=== PATIENT | male | born 1950 | race Caucasian/White ===

== ENCOUNTER 2017-12-05 05:55 | Inpatient (IN) ==
[~2017-12-05 05:55] MED LIST: LIDOCAINE W/ SODIUM BICARB 0.5 ML SYR ONE; Lactated Ringers 1,000 ML PRIMARY IV ONE
[2017-12-05] MEDS ORDERED: ceFAZolin Inj 3 GM in Sodium Chloride 0.9% 100 ML IV ONE (06:00)
[2017-12-05] MEDS ORDERED: Lactated Ringers 1,000 ML PRIMARY IV SCH (06:00)
[2017-12-05] MEDS ORDERED: Nasal Sanitizer POPSWAB ampule 3 AMP (Nozin) PREOP DOSE ENOS SCH (06:00)
[2017-12-05] MEDS ORDERED: LIDOCAINE W/ SODIUM BICARB 0.5 ML SYR SUBD ONE (06:00)
[2017-12-05] MEDS ORDERED: BACITRACIN 50,000 UNIT VIAL IRRIG ONE (07:06)
[2017-12-05] MEDS ORDERED: Sodium Chloride 0.9% vial 40 ML ONE (07:06)
[2017-12-05] MEDS ORDERED: KETAMINE 100 MG/1 ML - 5 ML ONE (07:09)
[2017-12-05] MEDS ORDERED: fentaNYL Inj 250 MCG/5 ML VIAL ONE (07:09)
[2017-12-05] MEDS ORDERED: MIDAZOLAM 5 MG/1 ML ONE (07:09)
[2017-12-05] MEDS ORDERED: PROPOFOL 10 MG/1 ML (200 MG/20 ML) VIAL IV ONE (07:09)
[2017-12-05] MEDS ORDERED: LIDOCAINE MPF 2% - 5 ML (20 MG/1 ML) ONE ×2 (07:09→10:23)
[2017-12-05 07:12] LABS: BILIRUBIN,URINE NEGATIVE (NEG); CLARITY,URINE CLEAR (CLEAR); COLOR,URINE YELLOW (Y); GLUCOSE, URINE (UA) NEGATIVE (NEG); OCCULT BLOOD,URINE NEGATIVE (NEG); PH,URINE 5.5 (5.0-8.5); PROTEIN,URINE NEGATIVE (NEG); UROBILINOGEN,URINE 0.2 EU/dL (0.2)
[2017-12-05 07:13] LABS: URINE SAMPLE TYPE CLEAN CATCH URINE
[2017-12-05] MEDS ORDERED: LIDOCAINE HCL 2 % 10 ML JELLY URO-JECT TOPICAL ONE (07:15)
[2017-12-05] MEDS ORDERED: ROCURONIUM 10 MG/1 ML - 5 ML VIAL IVP ONE (07:17)
[2017-12-05] MEDS ORDERED: TRANEXAMIC ACID 1,000 MG / 10 ML VIAL ONE ×3 (07:27→08:37)
[2017-12-05] MEDS ORDERED: BUPIVACAINE SPLASH ONE ×2 (07:30)
[2017-12-05] MEDS ORDERED: KETOROLAC SPLASH ONE ×2 (07:30)
[2017-12-05] MEDS ORDERED: Lactated Ringers 1,000 ML PRIMARY IV ONE ×4 (07:54→10:32)
[2017-12-05] MEDS ORDERED: BUPivacaine Liposome/PF (Exparel) Inj 20ml vial INFIL ONE (08:17)
[2017-12-05] MEDS ORDERED: Sodium Chloride 0.9% vial 10 ML ONE ×2 (08:17→08:25)
[2017-12-05] MEDS ORDERED: Acetaminophen 1000mg Inj 1,000 MG/100 ML VIAL IV ONE (08:38)
[2017-12-05] MEDS ORDERED: SUFENTANIL 50 MCG/1 ML ONE (08:43)
[2017-12-05] MEDS ORDERED: BUPivacaine Inj 0.25% PF - 10ml vial ONE (10:57)
[2017-12-05] MEDS ORDERED: BETAMET ACET/BETAMET NA PH 6 MG/1 ML - 5 ML ONE (10:57)
[2017-12-05] MEDS ORDERED: HYDROmorphone 2 MG/1 ML IVP PRN (11:17)
[2017-12-05] MEDS ORDERED: ONDANSETRON 4 MG/2 ML VIAL IVP PRN ×2 (11:17→12:39)
[2017-12-05] MEDS ORDERED: LIDOCAINE W/ SODIUM BICARB 0.5 ML SYR SUBD PRN (11:17)
--- NOTE | 2017-12-05 11:17 | CRNA.PROGR ---
Anesthesia Time - Procedure/Recovery Time Start Date: 12/05/17 End Date: 12/05/17 Anesthesia : Time In: 07:36 Anesthesia : Time Out: 11:12 Anesthesia : Total Time: 216 - Total Anesthesia Time Total Anesthesia Time (minutes): 216 - Other Weight: 121.109 kg Height: 6 ft 5 in Body Mass Index (BMI): 31.6 Physical Status: P2 Anesthesia Type: General Anesthesia : ET
--- NOTE | 2017-12-05 11:17 | CRNA.PROGR ---
Anesthesia Recovery Phase I - Post Anesthesia Evaluation Patient's Condition on Arrival in Phase I: Stable Pain Level: 0 (somnulant)
[2017-12-05] MEDS ORDERED: HYDROcodone-APAP 7.5 MG-325 MG TABLET PO PRN (11:19)
--- NOTE | 2017-12-05 11:35 | ORTHO.OP ---
- - -: See Dictated Operative Report
[2017-12-05] MEDS ORDERED: HYDROmorphone 2 MG/1 ML ONE (11:44)
[2017-12-05 12:04] LABS: Hematocrit [HCT] 39.7 % (42.0-52.0); Hemoglobin [HGB] 13.3 g/dL (14.0-18.0)
[2017-12-05] MEDS ORDERED: MAG HYDROX/AL HYDROX/SIMETH 30 ML SUSP PO PRN (12:39)
[2017-12-05] MEDS ORDERED: diphenhydrAMINE 25 MG CAPSULE PO PRN (12:39)
[2017-12-05] MEDS ORDERED: CALCIUM CARBONATE 500 MG (TUMS) CHEWABLE TABLET PO PRN (12:39)
[2017-12-05] MEDS ORDERED: INSULIN GLARGINE HUM REC ANLOG 50 UNIT SUBCUT SCH (12:39)
[2017-12-05] MEDS: Lactated Ringers 1,000 ML PRIMARY IV SCH ×2 (13:41→23:47)
[2017-12-05] MEDS ORDERED: Insulin Sliding Scale Protocol SUBCUT PRN (15:27)
[2017-12-05] MEDS ORDERED: Glucagon Inj Vial 1 MG/ML VIAL IM PRN (15:27)
[2017-12-05] MEDS ORDERED: DEXTROSE 31 GM GEL PO PRN (15:27)
[2017-12-05] MEDS ORDERED: DEXTROSE 50%-WATER SYRINGE 50 ML SYRINGE IVP PRN (15:27)
--- NOTE | 2017-12-05 15:47 | PDOC ---
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 Almendarez today. See Dr. Almendarez surgical note for details of the procedure. I was asked to see the patient to adjust diabetes and advise on that and issues related to his hypertension. Postoperatively, the patient does not complain of any chest pain, shortness breath, and he states that his left hip pain is controlled currently. He did have some nausea and vomiting, but those have resolved and is been able to hold some fluids down now. The patient states that he's had arthritis for some time. He states that his arthritis is bad enough and his hip and knee on the left side that he's actually going to be doing a left knee replacement down the road as well as right hip and a right knee replacement. He may even be looking at back surgery although that remains to be seen in terms of whether or not his back pain improves after his health has been done. In terms of his diabetes, a total me that his blood sugars been running in the 120s to 130s range. He states that he recently had an eye exam and his eyes were cleared. He does not have any nephropathy or neuropathy symptoms. He normally gets his care through the [facility] in [place]. He does admit to smoking tobacco, and he is not sure if he is interested in a nicotine replacement product. He is willing to try if he has any nicotine cravings. He has not had any recent history of heart problems, but he did have a remote CABG over 25 years ago. He has had subsequent stents but denies any chest pain and has not had any congestive heart failure symptoms. Past Medical History Medical History: 1. Coronary artery disease status post CABG and subsequent stents for graft vessel coronary artery disease. 2. Hypertension. 3. Diabetes mellitus, insulin-dependent. 4. Tobacco abuse. 5. Severe arthritis affecting the hips, knees, shoulders, and back. 6. Hypercholesterolemia Surgical History: 1. Prior knee surgeries. 2. History back surgery. 3. Cataracts Pertinent Family History: Significant for heart disease and diabetes in the family. Past Social History: Smokes about three quarters of a pack per day, states that he's been cutting back. Does not drink alcohol. . Has healthy children. Lives in [place], and gets his care through the [place]. Tobacco Use: Current Every Day Smoker In the Past 12 Months, Have Used or Abuse Any of the Following Substance: None Alcohol Use: None Medication / Allergies Home Medications: Home Medications 3 Medication Instructions Recorded Confirmed Type acetaminophen 325 mg tablet 325 mg PO QDAY PRN tab 10/09/17 12/05/17 History albuterol 90 mcg/actuation aerosol mcg INH BID 10/09/17 11/09/17 History inhaler insulin aspart U-100 100 unit/mL 50 unit SUBCUT QAC ml 10/09/17 12/05/17 History subcutaneous solution insulin glargine (U-100) 100 50 unit SUBCUT QHS ml 10/09/17 12/05/17 History unit/mL subcutaneous solution losartan 25 mg tablet 25 mg PO QDAY 10/09/17 12/05/17 History melatonin 3 mg tablet 9 mg PO QHS tab 10/09/17 12/05/17 History Rivaroxaban [Xarelto] 10 mg PO DAILY #35 tab 12/05/17 Rx Allergies/Adverse Reactions: Allergies 3 Allergy/AdvReac Type Severity Reaction Status Date / Time No Known Allergies Allergy Verified 12/05/17 12:41 Review of Systems - Review of Systems All Systems: Reviewed & No Additional Complaints Except as Stated - Respiratory Respiratory: REPORTS: Negative System Review - Cardiovascular Cardiovascular: REPORTS: Negative System Review - Gastrointestinal Gastrointestinal / Abdominal: REPORTS: Nausea, Vomiting, Other (Nausea and vomiting were noted postoperatively, but have not heard improved. Patient is holding fluids down now.) - Musculoskeletal Musculoskeletal: REPORTS: See HPI Exam - Vitals Vital Signs: Vital Signs Temperature 97.7 F Temperature Source Oral Pulse Rate [Pulse Oximeter] 65 Pulse Rate 75 Respiratory Rate 20 Blood Pressure [Left Arm] 127/64 Blood Pressure 135/68 Pulse Ox 98 Oxygen Flow Rate 2 Oxygen Delivery Method Nasal Cannula Height 6 ft 5 in Weight 267 lb - General General Appearance: No Acute Distress, Cooperative - Head Head Exam: Normal Inspection, Normocephalic, Atraumatic - Eye Eye Exam: POSITIVE: No Scleral Icterus - ENT ENT Exam: POSITIVE: Mucous Membranes Moist - Respiratory Respiratory Exam: POSITIVE: Clear to Auscultation - Bilaterally, Breathing Non Labored - Cardiovascular Cardiovascular Exam: POSITIVE: RRR, No Murmur, No Clicks, No Gallops, No Rubs, No JVD - GI/Abdominal GI/Abdominal Exam: POSITIVE: Normal Bowel Sounds, Non Tender, Non Distended, Soft - Rectal Rectal Exam: POSITIVE: Deferred - External Exam: POSITIVE: Deferred Exam: POSITIVE: Deferred - Extremities Extremities Exam: POSITIVE: No Clubbing Present, No Edema Present, No Cyanosis Present Additional Extremities Exam Details: Left hip is dressed, dressing is clean, dry, intact and ice pack is in place. - Neurological Neurological Exam: POSITIVE: Alert, Oriented x 3, No Facial Droop, Speech Intact / Clear Results - Labs CBC and BMP: 12/05/17 12:00 Additional Lab Results: 11/09/17 11/09/17 08:58 08:58 Sodium 141 Potassium 4.6 Chloride 108 Carbon Dioxide 22 L Anion Gap 11 BUN 15 Creatinine 0.9 Estimated GFR > 60 BUN/Creatinine Ratio 16.66 Glucose 169 H Mean Blood Glucose 161.419 Hemoglobin A1c 7.43 H Calculated Osmolality 296.0 H Calcium 9.4 Total Bilirubin 0.5 AST 57 ALT 49 Alkaline Phosphatase 101 Total Protein 7.5 Albumin 4.2 Globulin 3.3 Albumin/Globulin Ratio 1.20 L Preoperative urinalysis was reviewed on my review of the medical record and it was negative. - EKG Data -: EKG Interpreted by Me (From 11/09/2017) Rate: Normal EKG Shows Normal: Sinus Rhythm - EKG Data EKG Interpretation: Other (Right bundle branch block pattern) Assessment and Plan - Patient Problems (1) Coronary artery disease Current Visit: Yes Status: Acute Code(s): I25.10 - Atherosclerotic heart disease of [place] coronary artery without angina pectoris Qualifiers: Coronary Disease-Associated Artery/Lesion type: bypass graft [place] vs. transplanted heart: [place] heart Associated angina: without angina Qualified Code(s): I25.810 - Atherosclerosis of coronary artery bypass graft(s) without angina pectoris (2) Diabetes mellitus, type II, insulin dependent Current Visit: Yes Status: Acute Code(s): E11.9 - Type 2 diabetes mellitus without complications; Z79.4 - ocean transportation intermediary (current) use of insulin (3) Hypertension Current Visit: Yes Status: Acute Code(s): I10 - Essential (primary) hypertension Qualifiers: Hypertension type: essential hypertension Qualified Code(s): I10 - Essential (primary) hypertension (4) Hypercholesterolemia Current Visit: Yes Status: Acute Code(s): E78.00 - Pure hypercholesterolemia , unspecified (5) Tobacco abuse Current Visit: Yes Status: Acute Code(s): Z72.0 - Tobacco use (6) Tobacco abuse counseling Current Visit: Yes Status: Acute Code(s): Z71.6 - Tobacco abuse counseling (7) Right bundle branch block Current Visit: Yes Status: Chronic Code(s): I45.10 - Unspecified right bundle-branch block (8) Osteoarthritis Current Visit: Yes Status: Acute Code(s): M19.90 - Unspecified osteoarthritis, unspecified site Qualifiers: Osteoarthritis location: multiple joints Osteoarthritis type: primary Qualified Code(s): M15.0 - Primary generalized (osteo)arthritis (9) Status post left hip replacement Current Visit: Yes Status: Acute Code(s): Z96.642 - Presence of left artificial hip joint - Assessment / Plan Additional Assessment/Plan Details: In terms of the diabetes, as we do not have aspart on formula, we'll switch to lispro for the hospital stay, and I'll write for Lantus, corrective dose insulin , and 10 units of lispro with meals. Check blood sugars every before meals and daily at bedtime and try to keep blood sugars at 180 or less. Also hold off on angiotensin receptor marek due to perioperative association with renal failure and hypotension. We can resume that in a couple of days. DVT prophylaxis. PT and OT. Would like to thank Dr. Almendarez for this consult. Other twice a day the hospitalist services pleasure to continue to assess and address medical issues during the patient's hospital stay.
[2017-12-05] MEDS ORDERED: Insulin Lispro Flexpen 300 UNIT/3 ML INSULN.PEN SUBCUT SCH ×2 (16:00→16:30)
[2017-12-05] MEDS ORDERED: ceFAZolin 1 GM VIAL ONE (17:40)
[2017-12-05] MEDS: ceFAZolin Inj 3 GM in Sodium Chloride 0.9% 100 ML IV SCH ×2 (17:49→23:41)
--- NOTE | 2017-12-05 17:50 | DI ---
AP AND LATERAL LEFT HIP, 12/05/2017 11:35 AM: Clinical History: Status post left total hip replacement. Osteoarthritis. Previous Exam: None at this facility. AP and lateral views of the replaced hip are submitted. The patient is status post left total hip rep lacement. The prosthetic joint articulates normally. Reading: Left total hip replacement. The prosthetic joint articulates normally.
[2017-12-05] MEDS: Insulin Lispro Flexpen 300 UNIT/3 ML INSULN.PEN SUBCUT SCH (20:27)
[2017-12-05] MEDS: MELATONIN 5 MG TABLET PO SCH (20:39)
[2017-12-05] MEDS: Insulin Glargine SoloStar Inj 100 UNIT/ML INSULN.PEN SUBCUT SCH (20:39)
[2017-12-05] MEDS: DOCUSATE 100 MG CAPSULE PO SCH (20:39)
[2017-12-05] MEDS: HYDROcodone-APAP 7.5 MG-325 MG TABLET PO PRN (20:40)
[2017-12-05] MEDS ORDERED: Insulin Glargine SoloStar Inj 100 UNIT/ML INSULN.PEN SUBCUT SCH (21:00)
[2017-12-06] MEDS: HYDROcodone-APAP 7.5 MG-325 MG TABLET PO PRN ×3 (01:59→20:25)
[2017-12-06 04:30] LABS: Hematocrit [HCT] 36.9 % (42.0-52.0); Hemoglobin [HGB] 12.7 g/dL (14.0-18.0); MEAN CORPUSCULAR HEMOGLOBIN 33.3 PG (27-31); MEAN CORPUSCULAR HGB CONC 34.4 g/dL (33-37); MEAN CORPUSCULAR VOLUME 96.9 FL (80-90); MEAN PLATELET VOLUME 9.1 FL (7.4-12.2); RED BLOOD COUNT 3.81 10^6/uL (4.70-6.10)
[2017-12-06 04:45] LABS: BLOOD UREA NITROGEN 19 mg/dL (7-22); BUN/CREATININE RATIO 23.75 (6-20)
--- NOTE | 2017-12-06 06:53 | ORTHO.PROG ---
Last Taken Vital Signs: Vital Signs - Last Taken Temperature 97.3 F 12/06/17 04:26 Pulse Rate 78 12/06/17 04:26 Respiratory Rate 18 12/06/17 04:26 Blood Pressure 113/56 12/06/17 04:26 Pulse Ox 92 12/06/17 04:26 Subjective: sleeping Objective: vitals per list . pt up walking last night. no co pain. Assessment: Stable POD # 1 L LOI. Of note wbc=16 CC when stable Plan: as above
[2017-12-06] MEDS: Insulin Lispro Flexpen 300 UNIT/3 ML INSULN.PEN SUBCUT SCH ×4 (06:55→20:26)
[2017-12-06] MEDS: DOCUSATE 100 MG CAPSULE PO SCH ×2 (08:38→20:25)
[2017-12-06] MEDS: ENOXAPARIN SODIUM 30 MG/0.3 ML SYRINGE SUBCUT SCH ×2 (08:38→20:24)
[2017-12-06] MEDS ORDERED: LOSARTAN 25 MG TABLET PO SCH (09:00)
--- NOTE | 2017-12-06 11:34 | PTI REPORT ---
Thank you for the referral of Christopher Mahajan. He was seen on 12/05/17 for an inpatient evaluation status post left total hip arthroplasty. SUBJECTIVE: The patient is a 67-year-old male. The patient reports he has been having a lot of pain in his hip since being brought up from outpatient surgery, but states that the pain is less than what he was having prior to surgery. He states most of his discomfort is because he is 6'5" and the bed is too small for him. PAST MEDICAL HISTORY: Past medical history can be found in the patient's medical record. OBJECTIVE FINDINGS: Pain: The patient reported a pain level initially of 4/10 on the verbal analog scale (0=no pain,10=worst pain) which increased to a 7/10 with activities. Bed mobility: The patient was able to perform bed mobility with mod assist x1 for the left lower extremity as well as verbal cues for maintaining total hip precautions. When initially asked, the patient was unable to recall any of the total hip precautions, but was able to recite them at the end of treatment following review. He required max assist x1 for the left lower extremity when transferring from edge of bed to supine. Transfers: The patient was able to perform sit to stand transfers with verbal cues for proper hand placement as well as unsupported sitting edge of bed for greater than 5 minutes as well as standing weight-shifting activities for up to 3 minutes. Strength/Range of motion: Strength and range of motion were not formally tested due to surgical restrictions. Incision/Edema: The patient's incision was unable to be inspected due to his post op bandage being in place. He does have Grade III edema in that left hip. Ambulation: Ambulation was not attempted on this visit due to his IV cord and oxygen. He is currently on 1 liter of oxygen via nasal cannula. ASSESSMENT: Problem List: Pain in the left hip Decreased passive and active range of motion in the left hip Decreased strength in the left hip Short-Term Goals: To be met by discharge from inpatient: Patient will be able to transfer from bed to stand independently. Patient will be able to ambulate approximately 100 feet with walker, weight- bearing as tolerated. Patient will be able to ascend and descend five stairs with walker, weight- bearing as tolerated. Long-Term Goals: To be met following discharge from inpatient: Patient will be seen by outpatient physical therapy. TREATMENT PLAN: Patient will be seen B.I.D during the week and one time per day over the weekend as an inpatient to address the above goals and objectives. INITIAL TREATMENT: Treatment today consisted of the initial evaluation followed by issuing the patient a standard walker. He was able to perform bed mobility with mod assist x1 from supine to edge of bed as well as standing weight-shifting activities. We reviewed the total hip precautions which the patient was able to recite correctly at the end of treatment. Following completion of weight-shifting activities and sit to stand transfers he was placed supine back in bed with ice on his left hip. We will progress with ambulatory activities tomorrow. DEIDRE
--- NOTE | 2017-12-06 15:24 | OTI REPORT ---
Thank you for the referral of Christopher Mahajan. He was seen on 12/06/17 for an occupational therapy inpatient evaluation status post left total hip arthroplasty. SUBJECTIVE: The patient is a 67-year-old male who had his present during the session today. The patient's reported she had a lot of questions about his precautions. Both the patient and his were questioning how to follow precautions. Prior to admission the patient was having a little bit of difficulty with his socks and shoes. The patient does wear toe separators that his has had to put on secondary to having decreased ability to bend over. The patient states he usually can dress himself independently except for the socks and shoes. The patient's said that their shower may be a bit of a problem as they do have a whirlpool type tub with a long handled shower hose. The patient's does have a friend that does have a shower chair where the seat goes over the edge. It was recommended that they put this at the highest height as the patient is 6'5" tall. PAST MEDICAL HISTORY: Past medical history can be found in the patient's medical record. OBJECTIVE FINDINGS: The patient was instructed in adaptive devices. He was issued a methods study analyst, sock aide, bath sponge, and long handled shoe horn. The was pretty adamant about getting a leg baggage inspector for the patient for safety in the bed. She reports that he usually sleeps in a bed by himself secondary to his snoring and she states he will have to get in and out of the bed by himself in the middle of the night and she would like him to not break his hip precautions while doing so. Hip precautions were highly emphasized. The patient was able to use methods study analyst with min verbal cues, sock aide with min assist and verbal cues, and the shoe horn with min assist and verbal cues. The patient needed step by step instruction on how to use adaptive devices appropriately to dress self including donning and doffing clothes. The patient was also instructed on how to stand up and sit down appropriately in and out of a chair as well as on home safety including reaching with the walker and placing hand on stable surface. ASSESSMENT: The patient would benefit from at least one more session of skilled OT to address improving overall abilities and ADL independence with use of adaptive equipment. Short-Term Goals: To be met by discharge from inpatient: Patient will be able to dress self with modified independence. Patient will be able to complete all functional transfers independently. Patient will be able to complete toileting and showering activities independently. Long-Term Goals: To be met following discharge from inpatient: Patient will be discharged to home demonstrating independence and safety with all functional transfers and ADLs. TREATMENT PLAN: Patient will be seen B.I.D during the week and one time per day over the weekend as an inpatient to address the above goals and objectives. INITIAL TREATMENT: Treatment today consisted of the initial evaluation followed by the patient being issued adaptive devices. We had the patient practice using adaptive devices to dress self. The patient still needs min verbal cues to min assist in order to dress self. DEIDRE
--- NOTE | 2017-12-06 16:29 | PT.PROG ---
Progress Note Progress Note: S. Patient stated that he is feeling good this morning, he reports that he has a little pain however not too much. O. patient was wheeled to the therapy gym where he had heat to his hip then performed quad sets, heel slides, glute sets, ankle pumps, short arc quads, sit to stands and box step ups (#2 box) all x 10. Patient then ambulated 175 feet back to his room where he was left in his chair with alarm and call light. A. Patient tolerated therapy well this morning, he was able to perform all exercises with no increase in pain or problems. Patient would continue to benefit from skilled therapy to increase strength and mobility at this time. P. Continue POC.
--- NOTE | 2017-12-06 16:33 | PDOC(PROG) ---
Date of Service: 12/06/17 Time of Service: 16:28 Interval History: No completes of chest pain, shortness breath, nausea or vomiting. Patient was very upset of her discussion of needing to consider doing consistent carbohydrates. I told the patient that we will not restrict his diet. I like him to continue to eat here as he does at home. I apologized for any misunderstandings over his diet, and he seems content with that apology and was glad that his diet would be remaining the same. Stated therapy is going well. Objective : Data - Labs CBC and BMP: 12/06/17 04:28 12/06/17 04:28 Objective : Exam - General General Appearance: No Acute Distress, Cooperative Additional General Exam Details: Vital Signs - Last Taken Temperature 98.1 F 12/06/17 16:25 Pulse Rate 76 12/06/17 16:25 Respiratory Rate 18 12/06/17 16:25 Blood Pressure 139/61 12/06/17 16:25 Pulse Ox 97 12/06/17 16:25 - Eye Eye Exam: No Scleral Icterus - ENT ENT Exam: Mucous Membranes Moist - Neck Neck Exam: JVP is not Raised - Respiratory Respiratory Exam: Clear to Auscultation - Bilaterally, Breathing Non Labored - Cardiovascular Cardiovascular Exam: RRR, No Murmur, No Clicks, No Gallops, No Rubs, No JVD - GI/Abdominal GI/Abdominal Exam: Normal Bowel Sounds, Non Tender, Non Distended, Soft - Extremities Extremities Exam: No Clubbing Present, No Edema Present, No Cyanosis Present Additional Extremities Exam Details: Maybe trace lower extremity edema in the left lower extremity - Neurological Neurological Exam: Alert, Oriented x 3, Normal Gait (Fantastic walking the hallways on a couple of ulcerations with his walker today.), No Facial Droop, Speech Intact / Clear Assessment and Plan - Patient Problems (1) Diabetes mellitus, type II, insulin dependent Current Visit: Yes Status: Acute Code(s): E11.9 - Type 2 diabetes mellitus without complications; Z79.4 - senior care (current) use of insulin (2) Coronary artery disease Current Visit: Yes Status: Acute Code(s): I25.10 - Atherosclerotic heart disease of [place] coronary artery without angina pectoris Qualifiers: Coronary Disease-Associated Artery/Lesion type: bypass graft [place] vs. transplanted heart: [place] heart Associated angina: without angina Qualified Code(s): I25.810 - Atherosclerosis of coronary artery bypass graft(s) without angina pectoris (3) Hypertension Current Visit: Yes Status: Acute Code(s): I10 - Essential (primary) hypertension Qualifiers: Hypertension type: essential hypertension Qualified Code(s): I10 - Essential (primary) hypertension (4) Hypercholesterolemia Current Visit: Yes Status: Acute Code(s): E78.00 - Pure hypercholesterolemia , unspecified (5) Tobacco abuse Current Visit: Yes Status: Acute Code(s): Z72.0 - Tobacco use (6) Tobacco abuse counseling Current Visit: Yes Status: Acute Code(s): Z71.6 - Tobacco abuse counseling (7) Right bundle branch block Current Visit: Yes Status: Chronic Code(s): I45.10 - Unspecified right bundle-branch block (8) Osteoarthritis Current Visit: Yes Status: Acute Code(s): M19.90 - Unspecified osteoarthritis, unspecified site Qualifiers: Osteoarthritis location: multiple joints Osteoarthritis type: primary Qualified Code(s): M15.0 - Primary generalized (osteo)arthritis (9) Status post left hip replacement Current Visit: Yes Status: Acute Code(s): Z96.642 - Presence of left artificial hip joint - Assessment / Plan Additional Assessment/Plan Details: Change the patient's diet to regular diet from consistent carbohydrate diet. Continue PT and OT and DVT prophylaxis. Given a hip, I would recommend 2835 days of DVT prophylaxis, but as per orthopedics. Probable discharge home tomorrow if patient continues to do this well with therapy. I think leukocytosis is due to demargination in the setting of stress from surgery, I do not see any signs of infection postoperatively at this point. Labs in a.m.
[2017-12-06] MEDS: MELATONIN 5 MG TABLET PO SCH (20:25)
[2017-12-06] MEDS: Insulin Glargine SoloStar Inj 100 UNIT/ML INSULN.PEN SUBCUT SCH (20:26)
[2017-12-07 05:26] LABS: Hematocrit [HCT] 36.4 % (42.0-52.0); Hemoglobin [HGB] 12.1 g/dL (14.0-18.0); MEAN CORPUSCULAR HGB CONC 33.2 g/dL (33-37); MEAN CORPUSCULAR VOLUME 99.2 FL (80-90); MEAN PLATELET VOLUME 10.1 FL (7.4-12.2); RED BLOOD COUNT 3.67 10^6/uL (4.70-6.10)
[2017-12-07 05:31] LABS: BLOOD UREA NITROGEN 22 mg/dL (7-22)
[2017-12-07 07:18] VITALS: BP 121/79; RESP 18; TEMP 97; O2SAT 93
[2017-12-07] MEDS: Insulin Lispro Flexpen 300 UNIT/3 ML INSULN.PEN SUBCUT SCH (07:29)
--- NOTE | 2017-12-07 07:37 | PT.PROG ---
Progress Note Progress Note: S: Pt. states he is doing really well. Feels he will be ready to go home tomorrow. O: Treatment consisted of moist heat to hip f/b therapeutic exercises: hip abd/ add, hs, qs, ankle pumps, sit to stands x 10 and ambulating with use of SW to and from his room. Pt. was then placed in bed side chair with call button and nursing notified. A: Pt. performed all activities well. He did require minimal assist with bed mobility. He is able to ambulate with SBA only. Progressing towards goals. P: Continue per POC to increase strength and activity tolerance. Barbara Rubin, CUSTOMS INVESTIGATOR
--- NOTE | 2017-12-07 08:13 | ORTHO.PROG ---
Last Taken Vital Signs: Vital Signs - Last Taken Temperature 97 F 12/07/17 07:17 Pulse Rate 89 12/07/17 07:17 Respiratory Rate 18 12/07/17 07:17 Blood Pressure 121/79 12/07/17 07:17 Pulse Ox 93 12/07/17 07:17 Subjective: Patient reports he is having some pain and the Hydrocodone is not adequately helping. He reports having incisional pain as well as a shoot pain that starts in the left groin and extends down the anterior thigh to the knee. He has not had a bowel movement thus far, but is urinating without difficulties. He has been working with PT and feels comfortable being discharged today. Objective: Laboratory Results 12/07/17 12/07/17 Range/Units 04:16 04:16 WBC 16.35 H (4.8-10.8) 10^3/uL RBC 3.67 L (4.70-6.10) 10^6/uL Hgb 12.1 L (14.0-18.0) g/dL Hct 36.4 L (42.0-52.0) % MCV 99.2 H (80-90) FL MCH 33.0 H (27-31) PG MCHC 33.2 (33-37) g/dL RDW Std Deviation 51.5 H (39-50) fL RDW Coeff of Patrizia 14.6 H (11.5-14.5) % Plt Count 221 (140-350) 10*3/uL MPV 10.1 (7.4-12.2) FL Sodium 138 (135-145) meq/L Potassium 4.0 (3.8-5.2) meq/L Chloride 109 (98-112) meq/L Carbon Dioxide 22 L (23-33) meq/L Anion Gap 7 (5-20) BUN 22 (7-22) mg/dL Creatinine 0.8 (0.70-1.50) mg/dL Estimated GFR > 60 (>60 ml/min/1.73m(2)) BUN/Creatinine Ratio 27.50 H (6-20) Glucose 136 H (78-110) mg/dL Calculated Osmolality 290.0 (267-292) mOsm/kg Calcium 9.1 (8.7-10.7) mg/dL On exam, there is no drainage appreciated through the dressing. Dressing clean/ dry/intact. NV intact. Patient not in any apparent distress. Negative calf tenderness. Assessment: POD 2 s/p Left LOI stable and doing well except for some postoperative pain. I think the patients anterior thigh pain is secondary to muscle spasms which is common after LOI. Plan: Routine POD 2 s/p LOI * Continue PT per posterior LOI protocol. Amublate with walker. * DVT ppx: continue lovenox and transition to Xarelto upon discharge. Discharge patient with portable SCD pumps. Instruct patient on use. * Contipation: continue OTC stool softener * PO pain: switched from hydrocodone to Percocet 7.5/325mg 1-2 tabs every 4-6 hrs prn pain * Muscle spasms: started on Flexeril 10mg 1 tab every 8 hrs prn muscle spasms * Dressing: may remove on POD 3 and shower as normal, no soaking the incision * Discharge: Patient stable from an orthopedic standpoint and ready to be discharged today to home once cleared medically by Hospitalist and PT * f/u as scheduled for first PO appointment with Dr. Almendarez in 2 weeks
--- NOTE | 2017-12-07 08:18 | ORTHO.DC ---
Discharge Summary Admit Date: 12/05/17 Discharge Date: 12/07/17 Admitting Diagnosis: Left hip OA Discharge Diagnosis: s/p left LOI Primary Surgery and Date: 12/05/17 Left LOI Hospital Course: Uneventful. Routine postoperative course following LOI. Discharge Medications: Discharge Medications acetaminophen 325 mg tablet 325 mg PO QDAY PRN tab 10/09/17 [History] albuterol 90 mcg/actuation aerosol inhaler 2 inh INH BID 10/09/17 [History] insulin aspart U-100 100 unit/mL subcutaneous solution 50 unit SUBCUT QAC ml 10/09/17 [History] insulin glargine (U-100) 100 unit/mL subcutaneous solution 50 unit SUBCUT QHS ml 10/09/17 [History] losartan 25 mg tablet 25 mg PO QDAY 10/09/17 [History] melatonin 3 mg tablet 9 mg PO QHS tab 10/09/17 [History] Rivaroxaban [Xarelto] 10 mg PO DAILY #35 tab 12/05/17 [Rx] Cyclobenzaprine HCl [Flexeril] 10 mg PO TID PRN #30 tab 12/07/17 [Rx] oxyCODONE/APAP 7.5/325 Tab [Percocet 7.5/325 Tab] 1 - 2 ea PO Q4-6H PRN #60 tab 12/07/17 [Rx] Follow-Up: Candido Almendarez [STAFF PHYSICIAN] - 2 Weeks (on discharge instructions) NONE,NONE [Primary Care Provider] - As Needed Discharge Instructions Provided to Patient / Family: Rivaroxaban (By mouth), Total Hip Replacement (GEN) Exam - Vitals Vital Signs: Vital Signs Temperature 97 F Temperature Source Temporal Artery Scan Pulse Rate [Pulse Oximeter] 89 Pulse Rate 75 Respiratory Rate 18 Blood Pressure [Left Arm] 121/79 Blood Pressure 135/68 Pulse Ox 93 Oxygen Flow Rate 1 Oxygen Delivery Method Room Air Height 6 ft 5 in Weight 119.295 kg
[2017-12-07] MEDS ORDERED: oxyCODONE/APAP 7.5/325 Tab 1 TAB TAB PO PRN (08:34)
[2017-12-07] MEDS: ENOXAPARIN SODIUM 30 MG/0.3 ML SYRINGE SUBCUT SCH (08:40)
[2017-12-07] MEDS: DOCUSATE 100 MG CAPSULE PO SCH (08:41)
--- NOTE | 2017-12-07 11:24 | PDOC(PROG) ---
Date of Service: 12/07/17 Time of Service: 11:21 Interval History: No complaints of chest pain, shortness breath, nausea or vomiting. We talked about blood pressure and when to resume angiotensin receptor marek. Does have a little bit more pain in left hip. Controlled with Percocet. Objective : Data - Labs CBC and BMP: 12/07/17 04:16 12/07/17 04:16 Additional Lab Results: Selected Entries 12/06/17 12:20 12/06/17 16:23 12/06/17 18:00 Finger Stick Blood Glucose 201 H 192 H 180 H 12/06/17 20:13 12/07/17 07:00 Finger Stick Blood Glucose 206 H 109 Objective : Exam - General General Appearance: No Acute Distress, Cooperative Additional General Exam Details: Vital Signs - Last Taken Temperature 97 F 12/07/17 07:17 Pulse Rate 89 12/07/17 07:17 Respiratory Rate 18 12/07/17 07:17 Blood Pressure 121/79 12/07/17 07:17 Pulse Ox 93 12/07/17 07:17 - Eye Eye Exam: No Scleral Icterus - ENT ENT Exam: Mucous Membranes Moist - Respiratory Respiratory Exam: Clear to Auscultation - Bilaterally, Breathing Non Labored - Cardiovascular Cardiovascular Exam: RRR, No Murmur, No Clicks, No Gallops, No Rubs, No JVD - GI/Abdominal GI/Abdominal Exam: Normal Bowel Sounds, Non Tender, Non Distended, Soft - Extremities Extremities Exam: No Clubbing Present, No Edema Present, No Cyanosis Present - Neurological Neurological Exam: Alert, Oriented x 3, No Facial Droop, Speech Intact / Clear, Moves All Extremities Equally Assessment and Plan - Patient Problems (1) Diabetes mellitus, type II, insulin dependent Current Visit: Yes Status: Acute Code(s): E11.9 - Type 2 diabetes mellitus without complications; Z79.4 - watermelon inspector (current) use of insulin (2) Hypertension Current Visit: Yes Status: Acute Code(s): I10 - Essential (primary) hypertension Qualifiers: Hypertension type: essential hypertension Qualified Code(s): I10 - Essential (primary) hypertension (3) Coronary artery disease Current Visit: Yes Status: Acute Code(s): I25.10 - Atherosclerotic heart disease of [place] coronary artery without angina pectoris Qualifiers: Coronary Disease-Associated Artery/Lesion type: bypass graft [place] vs. transplanted heart: [place] heart Associated angina: without angina Qualified Code(s): I25.810 - Atherosclerosis of coronary artery bypass graft(s) without angina pectoris (4) Hypercholesterolemia Current Visit: Yes Status: Acute Code(s): E78.00 - Pure hypercholesterolemia , unspecified (5) Tobacco abuse Current Visit: Yes Status: Acute Code(s): Z72.0 - Tobacco use (6) Tobacco abuse counseling Current Visit: Yes Status: Acute Code(s): Z71.6 - Tobacco abuse counseling (7) Right bundle branch block Current Visit: Yes Status: Chronic Code(s): I45.10 - Unspecified right bundle-branch block (8) Osteoarthritis Current Visit: Yes Status: Acute Code(s): M19.90 - Unspecified osteoarthritis, unspecified site Qualifiers: Osteoarthritis location: multiple joints Osteoarthritis type: primary Qualified Code(s): M15.0 - Primary generalized (osteo)arthritis (9) Status post left hip replacement Current Visit: Yes Status: Acute Code(s): Z96.642 - Presence of left artificial hip joint - Assessment / Plan Additional Assessment/Plan Details: From a medical standpoint, I think the patient is okay to go today. Resume losartan on Monday. Blood pressure cuff prescription written. Blood sugars noted. For the most part, there are several blood sugars low 180. The ones that are not below 180 or fairly close, so at this time I'll leave insulin regimen the same. Advised follow [facility] with [facility] and he has that scheduled already at the end of the month. Xarelto for DVT prophylaxis as per Dr. Almendarez's team. As of Lovenox today so I advised him to start that tomorrow. Continue PT and OT as per orthopedic instructions. Wound care as per orthopedic team. Thanks for consult, hospitalist service will sign off.
--- NOTE | 2017-12-07 11:43 | PT.PROG ---
Progress Note Progress Note: S. Patient stated that he is sore this morning, he reports that he is concerned about getting into his truck. O. Patient ambulated 175 feet to the therapy gym where he had heat to his hip and performed heel slides, quad sets, ankle pumps (red thera band), short arc quads, glute sets, seated heel toe raises and sit to stands all x 15, and box step ups with #3 box x 10. Patient then ambulated 80 feet to his truck where he performed transfer into and out of the vehicle with contact guard assist. Patient's was instructed on how to assist. Patient then ambulated 200 feet back to his room where he was left with alarm and call light. A. Patient tolerated therapy well, he was struggling with pain and stiffness this morning, however was able to perform all exercises and transfers with Stand by and contract guard assist. Patient has met all goals and would benefit from outpatient therapy at this time. P. Continue POC until Discharged.
--- NOTE | 2017-12-07 15:05 | OT AM DAY ---
Diagnosis : Left Total Hip Arthroplasty AM - Occupational Therapy S: The patient reports he is ready to go home. O: We did a quick run through of the patient's ADLs and how to use the supervisor bakery sanitation and the sock aide. We also went over his precautions. The patient demonstrated an understanding and ability to complete dressing with supervisor bakery sanitation and sock aide by donning his socks and shoes. The patient did not want to change his shorts at this time due to wanting to take a shower before he goes home. He was able to verbalize understanding of how to use the supervisor bakery sanitation to put on his shorts. patient completed toileting task independently with standard walker for stability. The patient then completed hygiene activities at the sink including washing hands and combing hair independently with no loss of balance. The patient required max assist to tie his shoelaces. The patient states he does have toe separators and his will be helping him put those on until he is able to reach his feet and put them on himself. A: The patient tolerated today's treatment well. P: Pt is D/C from OT services due to reaching all OT goals. DEIDRE
== END 2017-12-07 11:42 | disposition home or self-care (01) | DRG 470 ==
LOC: OPS 05:55 → MED/SURG 12:17
PROVIDERS: ADMIT Orthopaedic Surgery; ATTEND Orthopaedic Surgery